=== PATIENT | female | born 1970 | race Two or more races ===

== ENCOUNTER 2020-11-23 08:01 | Outpatient (REF) | payer SELFPAY ==
--- NOTE | 2020-11-23 12:45 | MHC.AU.P13 ---
Hearing Aid Evaluation- Binaural Date of Visit: 11/23/20 Description of Hearing: Normal sloping to mild sensorineural hearing loss bilaterally- [facility] on 11/18/2020 Current Hearing Instrument Information: N/A Additional Information: Patient reports difficulty hearing at work and home. She finds that she has been asking people for frequent repetition. She has difficulty hearing on the phone, reporting that it sounds muffled. If someone talks to her from the side/behind her, she often does not hear them. Hearing aid options were discussed. Patient had selected a pair of [employer] P70-R in color P5 with size 1M receivers and open domes. Plan: After the appointment, while preparing the prior authorization, it was discovered that the patient's particular [facility] plan did not cover hearing aids. Called patient to discuss. Gave her contact information for [facility] ( ). Diagnosis Code(s): Primary Diagnosis: H90.3 Bilateral Sensorineural Hearing Loss Services Performed: SNYDER Non-Quantity Charges: HANC: NonBillable Event Signature: Provider: Mahsa Jiménez, CCC-A
== END 2020-11-23 08:02 | disposition home or self-care (01) ==
LOC: HO.HAP 08:01
PROVIDERS: Visit Provider Otolaryngology
DX: H90.3 Sensorineural hearing loss, bilateral (principal); Z46.1 Encounter for fitting and adjustment of hearing aid
CPT/HCPCS: 99499

== ENCOUNTER 2021-02-07 06:54 | Emergency (ER) | payer OTHER, SELFPAY ==
--- NOTE | ~2021-02-07 | US_ITS ---
EXAMINATION: LEFT LOWER EXTREMITY DEEP VENOUS ULTRASOUND CLINICAL INFORMATION: Left lower extremity pain for 2 days. COMPARISON: None. TECHNIQUE: Duplex Doppler imaging with compression maneuvers were performed of the left lower extremity deep venous system. FINDINGS: The visualized common femoral, femoral and popliteal veins demonstrate normal compressibility and color flow without evidence of venous thrombosis. Visualized portions of the calf veins demonstrate normal color fill-in suggesting patency. Dilated superficial varicosity in the region of the knee which demonstrate internal echogenicities and no color flow consistent with a thrombosed varicose vein. The great saphenous vein in the calf demonstrate linear echogenicities and is incompletely compressible which is most suggestive of chronic appearing nonocclusive thrombus. There is no evidence of a Villar's cyst. US/US venous duplex LE LT IMPRESSION: 1. No evidence of deep venous thrombosis involving the left lower extremity. 2. Thrombosed varicosity in the region of the knee with chronic appearing thrombus within the superficial right greater saphenous vein. Clinical correlation recommended.
[2021-02-07 06:56] VITALS: BP 125/58; PULSE 73; RESP 16; TEMP 36.8; O2SAT 100; BMI 26.7
--- NOTE | 2021-02-07 07:17 | ED.GENADULT ---
HPI - General Adult General Chief complaint: General Medical Stated complaint: Blood Clot? Time Seen by Provider: 02/07/21 07:09 Source: patient Mode of arrival: ambulatory History of Present Illness HPI narrative: This is a 50 years old of female who presented to the emergency department with left lower extremity pain atraumatic x2 days she is concerned about a blood clot denies any fever, vomiting any systemic symptoms Location: lower extremity Radiation: non-radiation Severity: moderate Severity scale (1-10): 3 Quality: aching Pain Consistency: constant Relieving factors: none Related Data Previous Rx's Medication Instructions Recorded ibuprofen [IBU] 600 mg PO Q8H PRN #15 tab 02/07/21 Allergies Allergy/AdvReac Type Severity Reaction Status Date / Time ketoconazole [From NIZORAL] Allergy Severe THROAT Unverified 07/30/20 17:40 CLOSING sulfamethoxazole Allergy Intermediate HIVES ITCHY Unverified 07/30/20 17:40 [From BACTRIM] trimethoprim [From BACTRIM] Allergy Intermediate HIVES ITCHY Unverified 07/30/20 17:40 Sulfa (Sulfonamide Allergy Unknown hives, eye Verified 03/08/16 00:00 Antibiotics) swelling Review of Systems Review of Systems: Yes all other systems are reviewed and are negative Respiratory: Respiratory: Reports no additional respiratory complaints Musculoskeletal: Musculoskeletal: Reports no additional musculoskeletal complaints PMFSH Past Medical History Medical History Thalassemia trait Varicose vein of leg Social History Social History Advance Directives: No Advance Directives Information Provided: No Physical Exam Vital Signs: Vital Signs: Last Vital Signs Temp 98.3 F 02/07/21 06:56 Pulse 73 02/07/21 06:56 Resp 16 02/07/21 06:56 BP 125/58 L 02/07/21 06:56 Pulse Ox 100 02/07/21 06:56 Body Mass Index 26.7 Const: Other: Patient appear well in not acute distress sitting on the stretcher Orientation/consciousness: oriented to person, oriented to place, oriented to time and patient oriented x3 HENMT: Head: Yes normal to inspection Eyes: General: appearance normal, both eyes and all related structures Visual Martinez: normal visual martinez by confrontation Neck: Neck: Yes normal visual inspection and Yes full ROM Chest: Chest palpation & inspection: normal inspection of the chest and normal palpation of entire chest wall Resp: Effort & Inspection: normal respiratory effort Auscultation: clear to auscultation bilaterally Cardio: Rate: regular rate Rhythm: regular rhythm GI: Inspection: Yes normal to inspection Palpation (GI): Soft to palpation, nontender and no guarding Skin: General skin exam: no rashes or lesions noted and elasticity normal Neuro: General: oriented to person, oriented to place, oriented to time and patient oriented x3 Extrem: Other: Examination the lower left lower extremity shows very good pulses no rash mild the calf tenderness Course Reevaluation(s) Reevaluation #1: Patient remained clinically stable the ultrasound of the leg showed no DVT we will discharge home; there is a question of a chronic clot in the varicose vein will recommend ibuprofen 600 mg t.i.d. p.r.n. Time: 10:09 Medical Decision Making Imaging Data Venous US: Radiologist's impression: l and popliteal veins demonstrate normal compressibility and color flow without evidence of venous thrombosis. Visualized portions of the calf veins demonstrate normal color fill-in suggesting patency. Dilated superficial varicosity in the region of the knee which demonstrate internal echogenicities and no color flow consistent with a thrombosed varicose vein. The great saphenous vein in the calf demonstrate linear echogenicities and is incompletely compressible which is most suggestive of chronic appearing nonocclusive thrombus. There is no evidence of a Villar's cyst. US/US venous duplex LE LT IMPRESSION: 1. No evidence of deep venous thrombosis involving the left lower extremity. 2. Thrombosed varicosity in the region of the knee with chronic appearing thrombus within the superficial right greater saphenous vein. Clinical correlation recommended. Dictated By:PAULINA BAHENA MDSigned By:<Electronically signed by PAULINA BAHENA MD in OV>02/07/21 0864 Discharge Plan Discharge Clinical Impression: Acute leg pain Patient Disposition: Home, Self-Care Instructions: Leg Pain (ED) Additional Instructions: You ultrasound does not show a deep vein thrombosis. You do have a thrombus in the varicose vein which could be old (but is not a DVT) we recommend that you take anti-inflammatory ibuprofen 600 mg at 3 times a day if follow-up with you primary care physician call In a.m. of for follow-up return to the emergency room if you were severe of a fever a few of increasing pain any concern including shortness of breath Prescriptions: New ibuprofen [IBU] 600 mg tablet 600 mg PO Q8H PRN (Reason: pain) Qty: 15 RF: 0
== END 2021-02-07 10:15 | disposition home or self-care (01) ==
PROVIDERS: Emergency Provider Emergency Medicine; PCP Internal Medicine
DX: R60.0 Localized edema (principal); M79.662 Pain in left lower leg; Z79.899 Other long term (current) drug therapy
CPT/HCPCS: 93971; 99282

== ENCOUNTER 2021-05-03 08:05 | Outpatient (REF) | payer SELFPAY | END 2021-05-03 08:06 | disposition home or self-care (01) | LOC: HO.HAP 08:05 | PROVIDERS: Visit Provider Internal Medicine | DX: Z13.89 Encounter for screening for other disorder (principal) ==